=== PATIENT | male | born 1975 | race Caucasian/White ===

== ENCOUNTER 2020-06-22 19:24 | Observation (INO) | payer OTHER ==
[2020-06-22 20:38] LABS: Absolute Lymphocytes (CBC) 0.4 K/uL (0.7-4.9); Basophils % 0.6 % (0-1.3); Lymphocytes % 5.5 % (15.3-44.8); MPV 7.8 fL (7.6-11.3); RBC Red Blood Cell Count 4.57 M/uL (4.33-5.43)
[2020-06-22 20:57] LABS: Protime INR 0.98
[2020-06-22] MEDS ORDERED: NA CHLORIDE 0.9% 1,000 ML ONE (21:00)
--- NOTE | 2020-06-22 21:03 | RAD REPORT ---
EXAM DESCRIPTION: CT - [id number] - 06/22/2020 8:32 pm CLINICAL HISTORY: seizure COMPARISON: No comparisons TECHNIQUE: Axial 5 mm thick images of the head were obtained. Axial 2 mm thick images of the cervic al spine were obtained with sagittal and coronal reconstruction images generated and reviewed. All CT scans are performed using dose optimization technique as appropriate and may include automated exposure control or mA/KV adjustment according to patient size. FINDINGS: No intracranial hemorrhage, mass, edema or acute intracranial finding. No suspicion for ac ben infarction. No extra-axial fluid collections. Mastoid air cells and paranasal sinuses are clear. No globe or orbit abnormality seen. Cervical body height and alignment are normal. No disk space narrowing. No fracture or acute bony abn ormality. Endplate spurring anteriorly at C5-6. Minimal bony foraminal encroachment at this level fro m uncovertebral joint hypertrophy. Central canal detail is inherently limited. No paraspinal mass or hematoma. IMPRESSION: Negative CT head examination for acute or significant finding. Negative CT cervical spine examination for acute or significant finding.
[2020-06-22 21:21] LABS: ALT/SGPT 178 U/L (12-78); AST/SGOT 127 U/L (15-37); Albumin 3.9 g/dL (3.4-5.0); Alkaline Phosphatase 58 U/L (45-117); BUN Blood Urea Nitrogen 11 mg/dL (7-18); Bicarbonate 27 mmol/L (21-32); Bilirubin Direct 0.4 mg/dL (0-0.2); Bilirubin Total 1.3 mg/dL (0.2-1.0); Glucose Level 128 mg/dL (74-106); Potassium 3.8 mmol/L (3.5-5.1); Protein, Total 7.5 g/dL (6.4-8.2); Sodium Level 129 mmol/L (136-145)
[2020-06-22 23:27] LABS: Barbiturates NEGATIVE (NEGATIVE); Benzodiazepines NEGATIVE (NEGATIVE); Cocaine NEGATIVE (NEGATIVE); METHAMPHETAM NEGATIVE (NEGATIVE); Methadone NEGATIVE (NEGATIVE); Opiates NEGATIVE (NEGATIVE); Phencyclidine NEGATIVE (NEGATIVE); THC Cannibis NEGATIVE (NEGATIVE)
[2020-06-22] MEDS ORDERED: IBUPROFEN 400 MG TAB ONE (23:41)
[2020-06-22] MEDS ORDERED: LORAZEPAM 1 MG TABLET ONE (23:44)
--- NOTE | 2020-06-23 00:10 | ER ---
Nurse's Notes [facility] Name: Humberto Anderson Age: 44 yrs Sex: Male : 1975 Arrival Date: 06/22/2020 Time: 19:57 Bed 15 Private MD: Diagnosis: Alcohol dependence with withdrawal Presentation: 06/22 20:00 Chief complaint: Patient states: I do not know what happened, I do not remember jb4 falling. If I hit my head, it was on tile [place]. I do not think I would have hit anything else on the way down. I drink 10-12 16oz beers per day. I have not had anything to drink since yesterday at 2230. EMS states: Pt's found him unresponsive in the bathroom closet with his eyes rolled back and foaming at the mouth. Pt has a hematoma to his forehead, is now A\T\Ox4. Last set of vitals 150/74, HR 80, RR 14, 99% RA, 97.8. Care prior to arrival: IV initiated. 20 GA, in the left antecubital area. Mechanism of Injury: Fall from standing position. Trauma event details: Injury occurred in the [facility]. 20:00 Method Of Arrival: EMS: [facility] jb4 20:03 Acuity: YON 2 lp1 20:18 Coronavirus screen: Client denies travel out of the [place] in the last 14 days. At this jb4 time, the client does not indicate any symptoms associated with coronavirus-19. Ebola Screen: Patient negative for fever greater than or equal to 101.5 degrees Fahrenheit, and additional compatible Ebola Virus Disease symptoms No symptoms or risks identified at this time. Initial Sepsis Screen: Does the patient meet any 2 criteria? RR > 20 per min. Yes Does the patient have a suspected source of infection? No. Patient's initial sepsis screen is negative. Risk Assessment: Do you want to hurt yourself or someone else? Patient reports no desire to harm self or others. Onset of symptoms was June 22, 2020. Transition of care: patient was not received from another setting of care. Trauma Activation: Alert Physician: ED Physician; Name: Berna; Notified At: 20:00; Arrived At: 20:00 Physician: General Surgeon; Name: ; Notified At: 20:00; Arrived At: Physician: Radiology; Name: Dania; Notified At: 20:00; Arrived At: 20:00 Physician: Respiratory; Name: ; Notified At: 20:00; Arrived At: Physician: Lab; Name: ; Notified At: 20:00; Arrived At: Historical: - Allergies: 20:19 No Known Allergies; jb4 - Home Meds: 20:19 None [Active]; jb4 - PMHx: 20:19 Alcoholism; Hypertension; jb4 - PSHx: 20:19 None; jb4 - Immunization history:: Adult Immunizations up to date. - Immunization history: Last tetanus immunization: unknown. - Social history:: Smoking status: Patient reports use of chewing tobacco. Patient uses alcohol, patient/guardian reports chronic longstanding heavy alcohol consumption. Patient/guardian denies using street drugs. Screenin:00 Abuse screen: Denies threats or abuse. Nutritional screening: No deficits noted. jb4 Tuberculosis screening: No symptoms or risk factors identified. Fall risk At risk due to prior history of falls, Intervention for positive screen: ED Physician notified, side rails up. Exposure risk/Travel Screening: None identified. 20:00 Fall Risk Fall in past 12 months (25 points). IV access (20 points). Total Morales Fall jb4 Scale indicates High Risk Score (45 or more points). Fall prevention measures have been instituted. Side Rails Up X 2 Placed Close to Nursing Station Frequent Obs/Assessments Occuring As available patient and family educated on Fall Prevention Program and Strategies. Primary Survey: 20:00 NO uncontrolled hemorrhage observed. A: The patient is alert. Airway: patent, No jb4 supplemental oxygen in use on arrival. Oral cavity: clear, gag reflex present. Breathing/Chest: Respiratory pattern: regular, Respiratory effort: spontaneous, unlabored, Chest inspection: symmetrical rise and fall of the chest. Circulation: Skin color: pink, Skin temperature: warm, dry. Disability Alert. Exposure/Environment: All clothing and personal items were removed. Forensic evidence collection is not deemed to be indicated at this time. Items placed in patient belonging bag. 21:00 Reassessment Airway Airway Patent Oxygen No O2 Oral cavity Clear +Gag reflex jb4 Breathing/Chest Respiratory pattern Regular Respiratory effort Spontaneous Unlabored Chest inspection Symmetrical Circulation Color [place] Temperature Warm Dry Disability Alert. Secondary Survey: 20:00 HEENT: Head Other Hematoma noted to the forehead Face No injury/deformity Eyes: No jb4 injury or deformity noted. Ears: clear Nose: clear Throat: No injury or deformity noted. is clear with gag reflex present. Gastrointestinal: No deficits noted. : No deficits noted. No signs and/or symptoms were reported regarding the genitourinary system. Musculoskeletal: No deficits noted. No signs and/or symptoms reported regarding the musculoskeletal system. Assessment: 20:00 General: Appears in no apparent distress. comfortable, Behavior is calm, cooperative, jb4 appropriate for age, Pt placed in C- Collar. Pain: Complains of pain in neck Pain does not radiate. Pain currently is 2 out of 10 on a pain scale. Neuro: Level of Consciousness is awake, alert, obeys commands, Oriented to person, place, time, situation. EENT: No deficits noted. No signs and/or symptoms were reported regarding the EENT system. Cardiovascular: Patient's skin is warm and dry. Respiratory: Airway is patent Respiratory effort is even, unlabored, Respiratory pattern is regular, symmetrical. GI: No deficits noted. No signs and/or symptoms were reported involving the gastrointestinal system. : No deficits noted. No signs and/or symptoms were reported regarding the genitourinary system. Derm: Skin is intact, Skin is pink, warm \T\ dry. Musculoskeletal: Circulation, motion, and sensation intact. Range of motion:. 21:00 Reassessment: Patient appears in no apparent distress at this time. Patient and/or jb4 family updated on plan of care and expected duration. Pain level reassessed. Patient is alert, oriented x 3, equal unlabored respirations, skin warm/dry/pink. 22:00 Reassessment: Patient appears in no apparent distress at this time. Patient and/or jb4 family updated on plan of care and expected duration. Pain level reassessed. Patient is alert, oriented x 3, equal unlabored respirations, skin warm/dry/pink. 23:00 Reassessment: Patient appears in no apparent distress at this time. Patient and/or jb4 family updated on plan of care and expected duration. Pain level reassessed. Patient is alert, oriented x 3, equal unlabored respirations, skin warm/dry/pink. 23:30 Reassessment: PT reports headache, and is noted to have tremors in both upper jb4 extremities, provider notified, see MAR for orders. 06/23 00:00 Reassessment: Patient appears in no apparent distress at this time. Patient and/or jb4 family updated on plan of care and expected duration. Pain level reassessed. Patient is alert, oriented x 3, equal unlabored respirations, skin warm/dry/pink. 01:00 Reassessment: Patient appears in no apparent distress at this time. Patient and/or jb4 family updated on plan of care and expected duration. Pain level reassessed. Patient is alert, oriented x 3, equal unlabored respirations, skin warm/dry/pink. Tremors remain present, but are significantly decreased. 01:45 Reassessment: Patient appears in no apparent distress at this time. Patient and/or jb4 family updated on plan of care and expected duration. Pain level reassessed. Patient is alert, oriented x 3, equal unlabored respirations, skin warm/dry/pink. Vital Signs: 06/22 20:00 BP 133 / 78; Pulse 76; Resp 24; Temp 99.1(TE); Pulse Ox 98% on R/A; Pain 2/10; jb4 21:00 BP 139 / 83; Pulse 68; Resp 16; Pulse Ox 99% on R/A; jb4 22:00 BP 135 / 86; Pulse 69; Resp 16; Pulse Ox 99% on R/A; jb4 23:00 BP 129 / 82; Pulse 66; Resp 20; Pulse Ox 98% on R/A; jb4 06/23 00:00 BP 126 / 80; Pulse 63; Resp 17; Pulse Ox 98% on R/A; jb4 01:00 BP 150 / 82; Pulse 93; Resp 20; Pulse Ox 100% on R/A; jb4 01:45 BP 125 / 74; Pulse 77; Resp 13; Pulse Ox 97% on R/A; jb4 [place] Coma Score: 06/22 20:00 Eye Response: spontaneous(4). Verbal Response: oriented(5). Motor Response: obeys 4 commands(6). Total: 15. 20:19 Eye Response: spontaneous(4). Verbal Response: oriented(5). Motor Response: obeys jb4 commands(6). Total: 15. :00 Eye Response: spontaneous(4). Verbal Response: oriented(5). Motor Response: obeys jb4 commands(6). Total: 15. :00 Eye Response: spontaneous(4). Verbal Response: oriented(5). Motor Response: obeys jb4 commands(6). Total: 15. :00 Eye Response: spontaneous(4). Verbal Response: oriented(5). Motor Response: obeys jb4 commands(6). Total: . 06/23 00:00 Eye Response: spontaneous(4). Verbal Response: oriented(5). Motor Response: obeys jb4 commands(6). Total: 15. :00 Eye Response: spontaneous(4). Verbal Response: oriented(5). Motor Response: obeys jb4 commands(6). Total: 15. :45 Eye Response: spontaneous(4). Verbal Response: oriented(5). Motor Response: obeys jb4 commands(6). Total: 15. Trauma Score (Adult): 06/22 20:00 Eye Response: spontaneous(1); Verbal Response: oriented(1); Motor Response: obeys jb4 commands(2); Systolic BP: > 89 mm Hg(4); Respiratory Rate: 10 to 29 per min(4); [place] Score: 15; Trauma Score: 12 21:00 Eye Response: spontaneous(1); Verbal Response: oriented(1); Motor Response: obeys jb4 commands(2); Systolic BP: > 89 mm Hg(4); Respiratory Rate: 10 to 29 per min(4); [place] Score: 15; Trauma Score: 12 22:00 Eye Response: spontaneous(1); Verbal Response: oriented(1); Motor Response: obeys jb4 commands(2); Systolic BP: > 89 mm Hg(4); Respiratory Rate: 10 to 29 per min(4); [place] Score: 15; Trauma Score: 12 23:00 Eye Response: spontaneous(1); Verbal Response: oriented(1); Motor Response: obeys jb4 commands(2); Systolic BP: > 89 mm Hg(4); Respiratory Rate: 10 to 29 per min(4); [place] Score: 15; Trauma Score: 12 06/23 00:00 Eye Response: spontaneous(1); Verbal Response: oriented(1); Motor Response: obeys jb4 commands(2); Systolic BP: > 89 mm Hg(4); Respiratory Rate: 10 to 29 per min(4); [place] Score: 15; Trauma Score: 12 01:00 Eye Response: spontaneous(1); Verbal Response: oriented(1); Motor Response: obeys jb4 commands(2); Systolic BP: > 89 mm Hg(4); Respiratory Rate: 10 to 29 per min(4); [place] Score: 15; Trauma Score: 12 01:45 Eye Response: spontaneous(1); Verbal Response: oriented(1); Motor Response: obeys jb4 commands(2); Systolic BP: > 89 mm Hg(4); Respiratory Rate: 10 to 29 per min(4); [place] Score: 15; Trauma Score: 12 ED Course: 06/22 19:57 Patient arrived in ED. lp1 20:00 Bernard Gates RN is Primary Nurse. jb4 20:00 Patient has correct armband on for positive identification. Bed in low position. Call jb4 light in reach. Side rails up X 1. Patient maintains SpO2 saturation greater than 95% on room air. 20:00 Seizure precautions initiated. jb4 20:00 Patient maintains SpO2 saturation greater than 95% on room air. Thermoregulation: warm jb4 blanket given to patient. 20:01 Benjamin Coronel PA is PHCP. cp 20:01 Eliazar Moore MD is Attending Physician. cp 20:04 Triage completed. lp1 20:19 Arm band placed on right wrist. jb4 20:33 CT Head C Spine In Process Unspecified. EDMS 20:55 Hepatic Function Sent. jb5 20:55 PT-INR Sent. jb5 20:55 Ptt, Activated Sent. jb5 20:56 Salicylate Sent. jb5 20:56 Basic Metabolic Panel Sent. jb5 20:56 Acetaminophen Sent. jb5 22:58 Urine Drug Screen Sent. jb5 23:56 US Abdomen Limited In Process Unspecified. EDMS 06/23 00:07 Catie Recio MD is Hospitalizing Provider. cp 01:48 No provider procedures requiring assistance completed. Maintain EMS IV. Dressing mg2 intact. Good blood return noted. Site clean \T\ dry. Gauge \T\ site: 20 \T\LAC. 01:49 Patient admitted, IV remains in place. mg2 Administered Medications: 06/22 20:55 Drug: NS 0.9% 1000 ml Route: IV; Rate: 1 bolus; Site: left antecubital; jb4 06/23 01:43 Follow up: Response: No adverse reaction; IV Status: Completed infusion; IV Intake: mg2 1000ml 06/22 23:35 Drug: Ativan 1 mg Route: PO; jb4 06/23 01:43 Follow up: Response: No adverse reaction mg2 06/22 23:36 Drug: Motrin 400 mg Route: PO; jb4 06/23 01:43 Follow up: Response: No adverse reaction mg2 00:16 Drug: Valium 2 mg Route: IVP; Site: left antecubital; jb4 :43 Follow up: Response: No adverse reaction mg2 Intake: 01:43 IV: 1000ml; Total: 1000ml. mg2 Output: 00:00 Urine: 900ml (Voided); Total: 900ml. jb4 Outcome: 00:08 Decision to Hospitalize by Provider. cp 01:47 Admitted to Med/surg accompanied by tech, via wheelchair, room 230, with chart, Report mg2 called to BOB Mercedes 01:47 Condition: stable 01:47 Instructed on the need for admit, Demonstrated understanding of instructions. 01:50 Patient's length of stay in the Emergency Department was greater than 2 hours. PT jb4 admitted.Patient's length of stay extended due to 01:52 Patient left the ED. mg2 Signatures: Dispatcher [employer] EDCT Machelle Frye RN RN lp1 Benjamin Coronel PA PA cp Bryson, James, RN RN jb4 Kelsi Caicedo jb5 Ming Keane RN RN mg2 Corrections: (The following items were deleted from the chart) 06/22 21:53 20:00 General: Appears in no apparent distress. comfortable, Behavior is calm, jb4 cooperative, appropriate for age, jb4 06/23 02:16 01:00 Reassessment: Patient appears in no apparent distress at this time. Patient jb4 and/or family updated on plan of care and expected duration. Pain level reassessed. Patient is alert, oriented x 3, equal unlabored respirations, skin warm/dry/pink. jb4
--- NOTE | 2020-06-23 00:10 | EDPHYS ---
Physician Documentation [facility] Name: Humberto Anderson Age: 44 yrs Sex: Male : 1975 Arrival Date: 06/22/2020 Time: 19:57 Bed 15 Private MD: ED Physician Eliazar Moore HPI: 06/22 20:10 This 44 yrs old Male presents to ER via EMS with complaints of Probable cp Seizure, Head Injury With LOC-Adult. 20:10 The patient presents after having a single isolated seizure, that lasted an unknown cp period of time, the episode(s) was witnessed, by family, . Seizure onset: just prior to arrival. Associated injury: Head/face: forehead, contusion. 20:10 Current symptoms: Currently, the patient is not experiencing any symptoms. cp 20:10 Seizure Hx: the patient has no previous seizure history. cp 20:10 Patient admits to history of daily drinking of 12 pack beer. Last drink yesterday. cp Historical: - Allergies: 20:19 No Known Allergies; jb4 - Home Meds: 20:19 None [Active]; jb4 - PMHx: 20:19 Alcoholism; Hypertension; jb4 - PSHx: 20:19 None; jb4 - Immunization history:: Adult Immunizations up to date. - Immunization history: Last tetanus immunization: unknown. - Social history:: Smoking status: Patient reports use of chewing tobacco. Patient uses alcohol, patient/guardian reports chronic longstanding heavy alcohol consumption. Patient/guardian denies using street drugs. ROS: 20:15 Constitutional: Negative for body aches, chills, fever, poor PO intake. cp 20:15 Eyes: Negative for injury, pain, redness, and discharge. cp 20:15 ENT: Negative for ear pain, sore throat, difficulty swallowing, difficulty handling secretions. 20:15 Cardiovascular: Negative for chest pain, edema, palpitations. 20:15 Respiratory: Negative for cough, shortness of breath, wheezing. 20:15 Abdomen/GI: Negative for abdominal pain, nausea, vomiting, and diarrhea, diarrhea, constipation, black/tarry stool, rectal bleeding. 20:15 Neuro: Positive for history of seizure, Negative for altered mental status, headache. 20:15 Psych: Positive for alcohol dependence, Negative for auditory hallucinations, visual hallucinations. 20:15 All other systems are negative. cp Exam: 20:20 Constitutional: The patient appears in no acute distress, alert, awake, cp non-diaphoretic, non-toxic, well developed, well nourished. 20:20 Head/face: Noted is contusion, that is superficial, of the forehead, swelling, that is cp mild, of the forehead. 20:20 Eyes: Periorbital structures: appear normal, Pupils: equal, round, and reactive to light and accomodation, Extraocular movements: intact throughout, Conjunctiva: normal, no exudate, no injection, Sclera: no appreciated abnormality, Lids and lashes: appear normal, bilaterally. 20:20 ENT: External ear(s): are unremarkable, Nose: is normal, Posterior pharynx: Airway: no evidence of obstruction, patent. 20:20 Neck: C-spine: vertebral tenderness, is not appreciated, crepitus, is not appreciated. 20:20 Chest/axilla: Inspection: normal, Palpation: is normal, no crepitus, no tenderness. 20:20 Cardiovascular: Rate: normal, Rhythm: regular, Edema: is not appreciated, JVD: is not appreciated. 20:20 Respiratory: the patient does not display signs of respiratory distress, Respirations: normal, no use of accessory muscles, no retractions, labored breathing, is not present, Breath sounds: are clear throughout, no decreased breath sounds. 20:20 Abdomen/GI: Inspection: abdomen appears normal, Palpation: abdomen is soft and non-tender, in all quadrants. 20:20 Neuro: Orientation: to person, place \T\ time. Mentation: is normal, Cerebellar function: cp is grossly normal, Motor: moves all fours, strength is normal, seizure activity, is not displayed by the patient, Abnormal movements: resting tremor, is located in the right hand and left hand. 21:05 ECG was reviewed by the Attending Physician. cp Vital Signs: 20:00 BP 133 / 78; Pulse 76; Resp 24; Temp 99.1(TE); Pulse Ox 98% on R/A; Pain 2/10; jb4 21:00 BP 139 / 83; Pulse 68; Resp 16; Pulse Ox 99% on R/A; jb4 22:00 BP 135 / 86; Pulse 69; Resp 16; Pulse Ox 99% on R/A; jb4 23:00 BP 129 / 82; Pulse 66; Resp 20; Pulse Ox 98% on R/A; jb4 06/23 00:00 BP 126 / 80; Pulse 63; Resp 17; Pulse Ox 98% on R/A; jb4 01:00 BP 150 / 82; Pulse 93; Resp 20; Pulse Ox 100% on R/A; jb4 01:45 BP 125 / 74; Pulse 77; Resp 13; Pulse Ox 97% on R/A; jb4 Loring Coma Score: 06/22 20:00 Eye Response: spontaneous(4). Verbal Response: oriented(5). Motor Response: obeys jb4 commands(6). Total: 15. 20:19 Eye Response: spontaneous(4). Verbal Response: oriented(5). Motor Response: obeys jb4 commands(6). Total: 15. 21:00 Eye Response: spontaneous(4). Verbal Response: oriented(5). Motor Response: obeys jb4 commands(6). Total: 15. :00 Eye Response: spontaneous(4). Verbal Response: oriented(5). Motor Response: obeys jb4 commands(6). Total: 15. 23:00 Eye Response: spontaneous(4). Verbal Response: oriented(5). Motor Response: obeys jb4 commands(6). Total: 15. 06/23 00:00 Eye Response: spontaneous(4). Verbal Response: oriented(5). Motor Response: obeys jb4 commands(6). Total: 15. 01:00 Eye Response: spontaneous(4). Verbal Response: oriented(5). Motor Response: obeys jb4 commands(6). Total: 15. :45 Eye Response: spontaneous(4). Verbal Response: oriented(5). Motor Response: obeys jb4 commands(6). Total: 15. Trauma Score (Adult): 06/22 20:00 Eye Response: spontaneous(1); Verbal Response: oriented(1); Motor Response: obeys jb4 commands(2); Systolic BP: > 89 mm Hg(4); Respiratory Rate: 10 to 29 per min(4); Nuno Score: 15; Trauma Score: 12 21:00 Eye Response: spontaneous(1); Verbal Response: oriented(1); Motor Response: obeys jb4 commands(2); Systolic BP: > 89 mm Hg(4); Respiratory Rate: 10 to 29 per min(4); Loring Score: 15; Trauma Score: 12 22:00 Eye Response: spontaneous(1); Verbal Response: oriented(1); Motor Response: obeys jb4 commands(2); Systolic BP: > 89 mm Hg(4); Respiratory Rate: 10 to 29 per min(4); Nuno Score: 15; Trauma Score: 12 23:00 Eye Response: spontaneous(1); Verbal Response: oriented(1); Motor Response: obeys jb4 commands(2); Systolic BP: > 89 mm Hg(4); Respiratory Rate: 10 to 29 per min(4); Nuno Score: 15; Trauma Score: 12 06/23 00:00 Eye Response: spontaneous(1); Verbal Response: oriented(1); Motor Response: obeys jb4 commands(2); Systolic BP: > 89 mm Hg(4); Respiratory Rate: 10 to 29 per min(4); Nuno Score: 15; Trauma Score: 12 01:00 Eye Response: spontaneous(1); Verbal Response: oriented(1); Motor Response: obeys jb4 commands(2); Systolic BP: > 89 mm Hg(4); Respiratory Rate: 10 to 29 per min(4); Loring Score: 15; Trauma Score: 12 01:45 Eye Response: spontaneous(1); Verbal Response: oriented(1); Motor Response: obeys jb4 commands(2); Systolic BP: > 89 mm Hg(4); Respiratory Rate: 10 to 29 per min(4); Nuno Score: 15; Trauma Score: 12 MDM: 06/22 20:08 Patient medically screened. 23:45 Data reviewed: vital signs, nurses notes, lab test result(s), EKG, radiologic studies, cp CT scan, ultrasound. 23:45 Test interpretation: by ED physician or midlevel provider: ECG. 06/23 00:02 Physician consultation: Scar PLUMMER was called at 00:02, was contacted at 00:02, regarding admission, to the telemetry unit. patient's condition, and will see patient in ED, shortly. 06/22 20:09 Order name: Acetaminophen; Complete Time: 21:41 06/22 20:09 Order name: Basic Metabolic Panel; Complete Time: 21:41 cp 06/23 00:04 Interpretation: Normal except: NA 129; CL 94; GLUC 128. cp 06/22 20:09 Order name: CBC with Diff; Complete Time: 21:41 cp 06/22 20:09 Order name: ETOH Level; Complete Time: 21:41 cp 06/22 20:09 Order name: Hepatic Function; Complete Time: 21:41 cp 06/22 20:09 Order name: PT-INR; Complete Time: 21:41 cp 06/22 20:09 Order name: CT Head C Spine; Complete Time: 21:41 cp 06/22 20:09 Order name: Ptt, Activated; Complete Time: 21:41 cp 06/22 20:09 Order name: Salicylate; Complete Time: 21:41 cp 06/22 20:09 Order name: Urine Drug Screen; Complete Time: 00:03 cp 06/22 21:42 Order name: US Abdomen Limited cp 06/22 23:08 Order name: Urine Dipstick--Ancillary (enter results); Complete Time: 00:30 tt3 06/23 00:30 Interpretation: Reviewed. 06/23 01:41 Order name: SARS-COV-2 RT PCR EDMS 06/22 20:09 Order name: EKG; Complete Time: 20:10 cp 06/22 20:09 Order name: EKG - Nurse/Tech; Complete Time: 21:28 cp 06/22 20:09 Order name: IV Saline Lock; Complete Time: 20:41 cp 06/22 20:09 Order name: Labs collected and sent; Complete Time: 20:41 cp 06/22 20:09 Order name: Urine Dipstick-Ancillary (obtain specimen); Complete Time: 22:58 cp EC/22 21:05 Rate is 71 beats/min. Rhythm is regular. ID interval is normal. QRS interval is normal. cp QT interval is normal. T waves are Inverted in lead aVL. Interpreted by me. Reviewed by me. Administered Medications: 20:55 Drug: NS 0.9% 1000 ml Route: IV; Rate: 1 bolus; Site: left antecubital; jb4 06/23 01:43 Follow up: Response: No adverse reaction; IV Status: Completed infusion; IV Intake: mg2 1000ml 06/22 23:35 Drug: Ativan 1 mg Route: PO; jb4 06/23 01:43 Follow up: Response: No adverse reaction mg2 06/22 23:36 Drug: Motrin 400 mg Route: PO; jb4 06/23 01:43 Follow up: Response: No adverse reaction mg2 00:16 Drug: Valium 2 mg Route: IVP; Site: left antecubital; jb4 01:43 Follow up: Response: No adverse reaction mg2 Disposition: 02:00 Chart complete. cp 06:06 Co-signature as Attending Physician, Eliazar Moore MD. [email or web address] Disposition: 06/23/20 00:08 Hospitalization ordered by Catie Recio for Inpatient Admission. Preliminary diagnosis is Alcohol dependence with withdrawal. - Bed requested for Telemetry/MedSurg (Inpatient). - Status is Inpatient Admission. mg2 - Condition is Stable. - Problem is new. - Symptoms have improved. Signatures: Dispatcher [employer] EDMS Benjamin Coronel PA PA cp Garcia, Cindy, RN RN cg Bernard Gates RN RN jb4 Ming Keane RN RN [facility] [place] Eliazar Moore MD MD [email or web address] Corrections: (The following items were deleted from the chart) 00:40 00:14 CORONAVIRUS+MR.LAB.BRZ ordered. EDVT EDMS 01:28 00:08 Hospitalization Ordered by Catie Recio MD for Inpatient Admission. Preliminary cg diagnosis is Alcohol dependence with withdrawal. Bed requested for Telemetry/MedSurg (Inpatient). Status is Inpatient Admission. Condition is Stable. Problem is new. Symptoms have improved. cp 01:52 01:28 06/23/2020 00:08 Hospitalization Ordered by Catie Recio MD for Inpatient mg2 Admission. Preliminary diagnosis is Alcohol dependence with withdrawal. Bed requested for Telemetry/MedSurg (Inpatient). Status is Inpatient Admission. Condition is Stable. Problem is new. Symptoms have improved. cg
[2020-06-23] MEDS ORDERED: DIAZEPAM 10 MG/2 ML INJ SYRINGE ONE (00:23)
[2020-06-23 00:26] LABS: Urine Blood NEGATIVE (NEG); Urine Glucose NEGATIVE (NEG); Urine Protein NEGATIVE (NEG); Urine Specific Gravity 1.015 (1.005-1.030); Urine pH 5.5 (5.0-7.0)
--- NOTE | 2020-06-23 00:56 | P.HP ---
Certification for Inpatient Patient admitted to: Observation With expected LOS: <2 Midnights Patient will require the following post-hospital care: None Practitioner: I am a practitioner with admitting privileges, knowledge of patient current condition, hospital course, and medical plan of care. Services: Services provided to patient in accordance with Admission requirements found in Title 42 Section 412.3 of the Code of Federal Regulations Patient History Date of Service: 06/23/20 Primary Care Provider: none Reason for admission: Seizure, alcohol withdrawal History of Present Illness: 44-year-old male with history of alcohol abuse presents emergency department for seizure-like activity. Patient reports that he was at home getting in the shower and that is the last thing he remembers until he was in the back of the ambulance coming to the hospital. Patient reports that period time when he is slightly confused after awakening that result shortly after. Patient reports that his last drink was on 06/21/2019 at 10:30 p.m. and that he drinks approximately a 12 pack per day and has done so for the last 5 years or so. Patient has not previously been through alcohol withdrawals. CT head C- spine performed in the emergency department negative for any acute findings. Lab significant for sodium 129 chloride 94 AST 127 ALT 178 ultrasound right upper quadrant performed showing fatty liver disease that he had acute findings. UDS negative, alcohol level less than 10. ED provider wishes to admit patient under observation for seizure, early alcohol withdrawal. 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 - Family History Father -: Hypertension - Social History Smoking Status: Never smoker Alcohol use: Yes CD- Drugs: No Caffeine use: Yes Place of Residence: Home Review of Systems 10-point ROS is otherwise unremarkable General: Other (Tremors) Neurological: Seizures Physical Examination - Physical Exam General: Alert, In no apparent distress HEENT: Atraumatic, PERRLA, Mucous membr. moist/pink, EOMI, Sclerae nonicteric Neck: Supple, 2+ carotid pulse no bruit, No LAD, Without JVD or thyroid abnormal ity Respiratory: Clear to auscultation bilaterally, Normal air movement Cardiovascular: Regular rate/rhythm, Normal S1 S2 Gastrointestinal: Normal bowel sounds, No tenderness Musculoskeletal: No tenderness Integumentary: No rashes Neurological: Normal speech, Normal strength at 5/5 x4 extr, Normal tone, Normal affect - Studies Laboratory Data (last 24 hrs) 06/22/20 20:21: PT 11.6, INR 0.98, APTT 23.3 L 06/22/20 20:21: WBC 7.7, Hgb 13.7, Hct 40.0, Plt Count 187 06/22/20 20:21: Sodium 129 L, Potassium 3.8, BUN 11, Creatinine 0.82, Glucose 128 H, Total Bilirubin 1.3 H, AST 127 H, ALT 178 H, Alkaline Phosphatase 58 Assessment and Plan - Plan Assessment Seizure likely secondary to early alcohol withdrawal syndrome Plan Seizure likely secondary to early alcohol withdrawal syndrome: Patient was given Valium, Ativan in the emergency department, is doing very well now. Patient not tachycardic, hypertensive. Patient with mild tremors but did have seizure at home. Will admit under observation, seizure precautions, scheduled Librium. Possible discharge tomorrow if he is still doing well. DVT prophylaxis with Lovenox 40 mg subcutaneous once daily. Discharge Plan: Home Plan to discharge in: 24 Hours - Advance Directives Does patient have a Living Will: No Does patient have a Durable POA for Healthcare: No - Code Status/Comfort Care Code Status Assessed: Yes (Full code) Critical Care: No Time Spent Managing Pts Care (In Minutes): 55
[2020-06-23] MEDS ORDERED: LORazepam 2 MG/ML VIAL IV PRN (01:58)
[2020-06-23] MEDS ORDERED: ONDANSETRON 4 MG/2 ML VIAL IV PRN (01:58)
[2020-06-23 02:07] VITALS: O2SAT 98
[2020-06-23] MEDS: NA CHLORIDE 0.9% 1,000 ML IV SCH ×2 (02:35→11:58)
[2020-06-23 02:43] VITALS: BMI 25.3
[2020-06-23] MEDS ORDERED: chlordiazePOXIDE HCl 25 MG CAP PO SCH (06:00)
[2020-06-23] MEDS ORDERED: chlordiazePOXIDE HCl 25 MG CAP PO PRN (08:50)
--- NOTE | 2020-06-23 08:56 | P.PN ---
Subjective Date of Service: 06/23/20 Primary Care Provider: none Chief Complaint: Seizure, alcohol withdrawal Subjective: No new changes, Tolerating diet (feels fine) Physical Examination - Vital Signs Temperature: 98.5 F Blood Pressure: 119/77 Pulse: 50 Respirations: 16 Pulse Ox (%): 98 - Physical Exam General: Alert, In no apparent distress, Oriented x3 HEENT: Atraumatic, Normocephalic Neck: Supple, 2+ carotid pulse no bruit Respiratory: Clear to auscultation bilaterally, Normal air movement Cardiovascular: No edema, Normal pulses, Regular rate/rhythm Gastrointestinal: Normal bowel sounds, Soft and benign, Non-distended Integumentary: No rashes, No breakdown, No significant lesion Neurological: Normal gait, Normal speech, Normal strength at 5/5 x4 extr - Studies Laboratory Data (last 24 hrs) 06/22/20 20:21: PT 11.6, INR 0.98, APTT 23.3 L 06/22/20 20:21: WBC 7.7, Hgb 13.7, Hct 40.0, Plt Count 187 06/22/20 20:21: Sodium 129 L, Potassium 3.8, BUN 11, Creatinine 0.82, Glucose 128 H, Total Bilirubin 1.3 H, AST 127 H, ALT 178 H, Alkaline Phosphatase 58 Assessment & Plan Physician Review: Patient Assessed, Agree with Above Assessment and Plan Physician Review Additional Text: Presumed Seizure - not witnessed Alcohol abuse HTN PLAN -doing well now - unclear if actual seizures or enhanced tremors at time of being found but patient report of lack of memoryof events appears to fit seziure - single valium dose last pm and librium dose since 5 am now - will switch Librium to prn - observe for recurrent tremors - may be able to dc home to dc home today -will obtain carotid US to r/o lesions of possible syncope
[2020-06-23] MEDS ORDERED: ENOXAPARIN 40 MG/0.4 ML SQ SCH (09:00)
--- NOTE | 2020-06-23 09:54 | RAD REPORT ---
EXAM DESCRIPTION: US - Abdomen Exam Limited - 06/22/2020 11:56 pm CLINICAL HISTORY: Abdominal pain. Elevated liver enzymes COMPARISON: None. FINDINGS: The gallbladder wall is not thickened. A gallstone is not seen. The biliary tree is normal caliber. Liver has increased echotexture IMPRESSION: Unremarkable gallbladder ultrasound. Increased hepatic echotexture consistent with fatty infiltration
[2020-06-23 10:09] LABS: ALT/SGPT 224 U/L (12-78); AST/SGOT 255 U/L (15-37); Albumin 3.5 g/dL (3.4-5.0); Alkaline Phosphatase 58 U/L (45-117); BUN Blood Urea Nitrogen 9 mg/dL (7-18); Bicarbonate 30 mmol/L (21-32); Bilirubin Total 1.6 mg/dL (0.2-1.0); Glucose Level 134 mg/dL (74-106); Potassium 3.6 mmol/L (3.5-5.1); Protein, Total 6.9 g/dL (6.4-8.2); Sodium Level 139 mmol/L (136-145)
--- NOTE | 2020-06-23 11:45 | P.DS ---
Admission Date: 06/23/20 Discharge Date: 06/23/20 Primary Care Provider: none Disposition: DC HOME/HOME HEALTH CARE Discharge Condition: FAIR Reason for Admission: Seizure, alcohol withdrawal Brief History of Present Illness: Patient' with history of alcohol abuse admited for tremulousness and seizure- like activity after attempting to self detox at home . He had decided to quit drinking 36 hrs prior and developed increasing tremors . he feels he lost consciousness prior to being found by his Hospital Course: On admission he had a head CT which was negative for any acute intracranial pathology . He did not have any tremors after given Valium in ER and later dose of scheduled Librium . He is ambulating, tolerating po well and conversant with no recurrent of withdrawal symptoms. He will be discharged home today after scheduled dose of Librium this pm . He has been advised to return to ER prn if recurrence of tremulousness symptoms Vital Signs/Physical Exam: Temp Pulse Resp BP Pulse Ox 98.5 F 50 16 119/77 98 06/23/20 08:56 06/23/20 08:56 06/23/20 08:56 06/23/20 08:56 06/23/20 08:56 General: Alert, In no apparent distress, Oriented x3 HEENT: Atraumatic, Normocephalic, PERRLA Neck: Supple, 2+ carotid pulse no bruit, JVD not distended Respiratory: Clear to auscultation bilaterally, Normal air movement Cardiovascular: No edema, Normal pulses, Regular rate/rhythm, Normal S1 S2 Gastrointestinal: Normal bowel sounds, Soft and benign, Non-distended Musculoskeletal: No clubbing, No swelling Neurological: Normal speech, Normal strength at 5/5 x4 extr, Normal tone Laboratory Data at Discharge: WBC 7.7 K/uL (4.3-10.9) 06/22/20 20: Hgb 13.7 g/dL (13.6-17.9) 06/22/20 20: Hct 40.0 % (39.6-49.0) 06/22/20 20: Plt Count 187 K/uL (152-406) 06/22/20 20:21 PT 11.6 SECONDS (9.5-12.5) 06/22/20 20: INR 0.98 06/22/20 20: APTT 23.3 SECONDS (24.3-36.9) L 06/22/20 20:21 Sodium 139 mmol/L (136-145) 06/23/20 09:08 Potassium 3.6 mmol/L (3.5-5.1) 06/23/20 09:08 BUN 9 mg/dL (7-18) 06/23/20 09:08 Creatinine 0.86 mg/dL (0.55-1.3) 06/23/20 09:08 Glucose 134 mg/dL (74-106) H 06/23/20 09:08 Total Bilirubin 1.6 mg/dL (0.2-1.0) H 06/23/20 09:08 AST 255 U/L (15-37) H D 06/23/20 09:08 ALT 224 U/L (12-78) H 06/23/20 09:08 Alkaline Phosphatase 58 U/L (45-117) 06/23/20 09:08 Home Medications: chlordiazePOXIDE HCl [Librium*] 25 mg PO Q8H PRN #3 cap 06/23/20 New Medications: chlordiazePOXIDE HCl [Librium*] 25 mg PO Q8H PRN #3 cap PRN Reason: withdrawl Diet: Regular Activity: Ad cathy Followup: NONE,NONE [Primary Care Provider] - Time spent managing pt's care (in minutes): 45
[2020-06-23 14:48] VITALS: BP 113/69; TEMP 97.4
--- NOTE | 2020-06-23 15:58 | RAD REPORT ---
EXAM DESCRIPTION: USCarotid Artery Bilateral06/23/2020 3:04 pm CLINICAL HISTORY: cva COMPARISON: None FINDINGS: The velocity of the right internal carotid artery equals 63 cm/sec. The right ICA/CCA rati o .7 The velocity of the left internal carotid artery equals 62 cm/sec. The left ICA/CCA ratio .7 Plaque is not seen within the carotid arteries The vertebral arteries demonstrate antegrade flow IMPRESSION: Unremarkable exam NASCET criteria used. Mild 0-49% stenosis Moderate 50-69% stenosis Severe 70-99% stenosis
== END 2020-06-23 15:40 | disposition home or self-care (01) ==
LOC: ER 19:24 → ERHOLD 06-23 00:47 → 2ND 06-23 01:48
PROVIDERS: ADMIT Internal Medicine; ATTEND Internal Medicine
DX: F10.132 Alcohol abuse with withdrawal with perceptual disturbance (principal); R56.9 Unspecified convulsions; R25.1 Tremor, unspecified; I10 Essential (primary) hypertension; Z20.822 Contact with and (suspected) exposure to COVID-19; Z82.49 Family history of ischemic heart disease and other diseases of the circulatory system
CPT/HCPCS: 96361; 93005; 85025; 80048; 36415; 80320; 80329 ×2; 85610; 80076; 80307 ×8; 85730; 81003; 80053; 70450; 72125; 93880; 76705; 96374; 99285; U0003; J1650; J3360; J7030 ×3; G0378 ×2; G0390